=== PATIENT | male | born 1965 | race Caucasian/White ===

== ENCOUNTER 2024-06-06 08:37 | Emergency (ER) | payer MEDICAID ==
[2024-06-06 09:07] VITALS: BP 151/99; O2SAT 93
--- NOTE | 2024-06-06 09:30 | XRAY Report ---
PROCEDURE: Foot 3+V RT INDICATIONS: Trauma TECHNIQUE: 3 views of the foot were acquired. COMPARISON: None. FINDINGS: Bones: No fractures or dislocations. Incompletely fused apophysis, base of fifth metatarsal. No susp icious bony lesions. Soft tissues: No tibiotalar joint effusion. Achilles tendon appears normal. IMPRESSION: No acute bony abnormality. Reviewed by: Tello Jacobson MD on 06/06/2024 9:29 AM PDT Approved by: Tello Jacobson MD on 06/06/2024 9:29 AM PDT Station ID: [id number]
--- NOTE | 2024-06-06 16:19 | ED Physician Documentation ---
PD HPI LOWER EXT INJURY - Stated complaint Stated Complaint: RT FOOT INJ - Chief complaint Chief Complaint: Ext Problem - History obtained from History obtained from: Patient (2 days ago he was picking blackberries and his foot landed on a branch wrong and he felt a pop with initially lateral than medial right foot pain. He is able to walk and bear weight but has to put most of the weight on his heel. No other injuries.) PD PAST MEDICAL HISTORY - Past Medical History Past Medical History: No Derm: Psoriasis - Past Surgical History Past Surgical History: No - Allergies Allergies/Adverse Reactions: Allergies Allergy/AdvReac Type Severity Reaction Status Date / Time No Known Drug Allergies Allergy Verified 06/06/24 09:03 - Social History Does the pt smoke?: No Smoking Status: Never smoker Does the pt drink ETOH?: Yes Does the pt have substance abuse?: No - Immunizations Immunizations are current?: No - POLST Patient has POLST: No PD ED PE NORMAL - Vitals Vital signs reviewed: Yes - General General: Alert and oriented X 3, No acute distress - Extremities Extremities: Other (Focused examination of right foot demonstrates mild tenderness of the lateral foot without swelling. No redness or warmth.) - Neuro Neuro: Alert and oriented X 3 Results - Vitals Vitals: Vital Signs - 24 hr 06/06/24 09:00 Temperature 36.5 C Heart Rate 90 Respiratory 20 Rate Blood Pressure 151/99 H O2 Saturation 93 Oxygen O2 Source Room air - Rads (name of study) Right foot x-ray demonstrates no acute disease. Relevant Findings:: Final report received, EMP independent interpretation of test PD Medical Decision Making - ED course ED course: He presents with likely foot sprain. X-rays negative except for unfused apophysis at the base of the fifth metatarsal. Placed in a boot and follow-up advised. Departure - Departure Disposition: 01 Home, Self Care Clinical Impression: Sprain of foot, right Condition: Good Instructions: ED Sprain Foot Comments: Recheck with your doctor in a week if not better, return for new or worsening symptoms. Ice, elevate, and rest. Forms: PCP List, Activity restrictions Discharge Date/Time: 06/06/24 10:30
== END 2024-06-06 10:30 | disposition home or self-care (01) ==
LOC: ED 08:37
DX: S93.601A Unspecified sprain of right foot, initial encounter (principal); X50.1XXA Overexertion from prolonged static or awkward postures, initial encounter; Y93.89 Activity, other specified
CPT/HCPCS: 99283